=== PATIENT | male | born 1980 | race Caucasian/White ===

== ENCOUNTER 2022-12-04 06:45 | Day surgery (SDC) | payer OTHER ==
[2022-12-04] VITALS (232 sets, daily range): BP systolic 70–202; BP diastolic 48–111
[~2022-12-04] VITALS: Ht 165.1 cm; Wt 103.0 kg
[2022-12-04 08:23] LABS: BASO% 0.3 % (0-3); EOS% 2.3 % (0-8); HEMATOCRIT 46.7 % (39.0-50.0); HEMOGLOBIN 15.3 g/dl (14.0-18.0); IMMATURE GRANULOCYTES 3.7 % (0.0-5.0); LYMPH% 23.4 % (15-41); MEAN CELL VOLUME 95.7 fL CALC (80.0-100.0); MEAN CORPUSCULAR HGB 31.4 pG CALC (26.0-32.0); MEAN CORPUSCULAR HGB CONC 32.8 g/dL CAL (32.0-36.0); MONO% 8.9 % (2-13); NEUT# 7.69 thou/uL (1.82-7.42); NEUT% 61.4 % (42-76); RED BLOOD COUNT 4.88 mill/uL (4.70-6.10); RED CELL DISTRI WIDTH 15.7 % (11.5-15.5)
[2022-12-04 08:26] LABS: ALBUMIN 3.8 g/dL (3.2-5.0); ALKALINE PHOSPHATASE 97 u/l (38-126); ANION GAP 10 (6-22 (CALC)); BILIRUBIN, TOTAL 0.7 mg/dL (0.2-1.3); BUN 13 mg/dL (9-20); BUN/CREATININE RATIO 13 (12-20 (CALC)); CARBON DIOXIDE 29 mmol/l (22-30); CHLORIDE 100 mmol/l (95-108); GFR FOR AFR.AMER. > 60 ML/MIN (>=60 (CALC)); GFR OTHER RACES > 60 ML/MIN (>=60 (CALC)); POTASSIUM 4.3 mmol/l (3.5-5.1); SGOT/AST 100 u/l (17-59); SODIUM 134 mmol/l (137-146); TOTAL PROTEIN 7.1 g/dL (6.3-8.2)
[2022-12-04] MEDS ORDERED: PEPCID40 MG PO (08:29)
[2022-12-04] MEDS ORDERED: PROTONIX40 M2 PO (08:30)
[2022-12-04] MEDS ORDERED: KLONOPIN2 MG PO (13:47)
[2022-12-04] MEDS ORDERED: CLONIDINE0.1 MG PO (13:47)
[2022-12-04] MEDS ORDERED: NALTREXONE50 MG PO (13:47)
[2022-12-05 01:09] VITALS: BP 150/82
[2022-12-05 03:28] VITALS: BP 143/85
[2022-12-05 04:40] LABS: BASO% 0.1 % (0-3); HEMATOCRIT 44.8 % (39.0-50.0); HEMOGLOBIN 15.2 g/dl (14.0-18.0); IMMATURE GRANULOCYTES 1.6 % (0.0-5.0); LYMPH% 4.7 % (15-41); MEAN CELL VOLUME 92.6 fL CALC (80.0-100.0); MEAN CORPUSCULAR HGB 31.4 pG CALC (26.0-32.0); MEAN CORPUSCULAR HGB CONC 33.9 g/dL CAL (32.0-36.0); MONO% 1.3 % (2-13); NEUT# 18.14 thou/uL (1.82-7.42); NEUT% 92.3 % (42-76); RED BLOOD COUNT 4.84 mill/uL (4.70-6.10); RED CELL DISTRI WIDTH 15.1 % (11.5-15.5)
[2022-12-05 04:59] LABS: ALKALINE PHOSPHATASE 73 u/l (38-126); BUN 11 mg/dL (9-20); BUN/CREATININE RATIO 13 (12-20 (CALC)); CHLORIDE 101 mmol/l (95-108); CREATININE 0.9 mg/dL (0.7-1.3); GFR FOR AFR.AMER. > 60 ML/MIN (>=60 (CALC)); GFR OTHER RACES > 60 ML/MIN (>=60 (CALC)); MAGNESIUM 2.1 mg/dL (1.6-2.3); SGOT/AST 78 u/l (17-59); SODIUM 133 mmol/l (137-146); TOTAL PROTEIN 7.2 g/dL (6.3-8.2)
[2022-12-05 05:04] LABS: ANION GAP 17 (6-22 (CALC)); BILIRUBIN, TOTAL 1.9 mg/dL (0.2-1.3); CARBON DIOXIDE 20 mmol/l (22-30); POTASSIUM 5.2 mmol/l (3.5-5.1)
[2022-12-05 08:13] VITALS: BP 124/76
[2022-12-05 08:54] VITALS: BP 124/76
== END 2022-12-05 16:15 | disposition home or self-care (01) | DRG 897 ==
LOC: ANR 06:45 → MS2 06:45 → ANR 10:00 → MS2 14:25 → ANR 12-05 16:15 → MS2 12-05 16:15
PROVIDERS: ATTEND Anesthesiology Critical Care Medicine
DX: F11.20 Opioid dependence, uncomplicated (principal)
CPT/HCPCS: J2060; J2354; J3475